=== PATIENT | male | born 1975 | race Caucasian/White ===

== ENCOUNTER → 2023-05-01 | Outpatient (CLI) | payer OTHER ==
--- NOTE | 2023-05-02 08:23 | DIREP ---
PROCEDURE:US SOFT TISSUE NECK COMPARISON:None. INDICATIONS:R22.1 LOCALIZED SWELLING, MASS AND LUMP NECK TECHNIQUE:Sonography of the right submandibular region was performed using grayscale and color Doppler imaging. FINDINGS: MASSES:A complex appearing, well circumscribed, hypoechoic lesion is noted at the site of palpation measuring 4.0 x 2.8 x 3.8 cm. Internal vascularity is demonstrated on the provided color Doppler images. FLUID COLLECTIONS:None. OTHER:Multiple lymph nodes are noted within region II and III of the right side of the neck, with the largest measuring 1.6 x 0.4 x 0.8 cm (with fatty hilum). CONCLUSION:Complex appearing right submandibular mass with internal vascularity with several adjacent prominent lymph nodes. Recommend further evaluation with soft tissue neck CT with IV contrast. Alternatively, the mass would be amenable to percutaneous biopsy. Dictated by: ISABELA Physician on 05/01/2023 at 05:11 PM ac
== END | disposition home or self-care (01) ==
LOC: RAD 14:15
PROVIDERS: ATTEND Nurse Practitioner Family
DX: R22.1 Localized swelling, mass and lump, neck (principal)
CPT/HCPCS: 76536

== ENCOUNTER → 2023-05-14 | Outpatient (CLI) | payer OTHER ==
--- NOTE | 2023-05-14 15:47 | DIREP ---
PROCEDURE:CT SOFT TISSUE NECK W/CONTRAST COMPARISON:[facility] [place], [place], US SOFT TISSUE NECK, 05/01/2023, 02:37 PM. INDICATIONS:R22.1 SWELLING, MASS AND LUMP NECK, R93.89 ABNORMAL FINDINGS TECHNIQUE:CT images were created with intravenous contrast material. Sagittal and coronal reconstructions are performed. FINDINGS: NASOPHARYNX:Normal. Fossae of Rosenmuller and torus tubarius are symmetric. ORAL CAVITY:Normal. No visible mass. OROPHARYNX:Normal. Faucial and lingual tonsils are symmetric. HYPOPHARYNX:Normal. No mass or other visible lesion. LARYNX:Normal. The vocal cords are symmetric and without mass. SINUSES:There is a soft tissue lesion in the right maxillary sinus with dehiscence of the anterior maxillary sinus wall. There is surgical fixation of the maxilla with fixation plates and screws. NECK GLANDS:Normal. The parotid, submandibular, and thyroid glands are unremarkable. LYMPH NODES:There is a heterogenous enhancing well-circumscribed mass in the right cervical level 2 region measuring 3.4 x 3.1 x 4.1 cm. The mass demonstrates central irregular hypoenhancement. The lesion is inferior to the parotid with preserved fat planes. There is posterior and mild medial displacement of the carotid arteries and right internal jugular vein. Multiple subcentimeter lymph nodes are present in the left neck. SKULL BASE:Normal. Foramina are symmetric without bony erosion. VASCULATURE:Normal. Limited views are unremarkable. BONES:Normal. No significant osseous lesions. OTHER:Normal. No additional imaging findings. CONCLUSION: 1. Round mass in the right neck at the cervical level 2 region demonstrates central irregular hypoenhancement. Differential includes a metastatic lymph node or a peripheral nerve sheath tumor. Other considerations include a pleomorphic adenoma, however this does not directly communicate with the parotid gland. Consider biopsy for further evaluation. 2. Soft tissue lesion in the right maxillary sinus is nonspecific. There is associated dehiscence of the anterior maxillary sinus wall. 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 ENT follow-up is recommended. Dictated by: Jonathan Springer M.D. on 05/14/2023 at 03:20 PM
== END | disposition home or self-care (01) ==
LOC: RAD 13:28
PROVIDERS: ATTEND Nurse Practitioner Family
DX: R22.1 Localized swelling, mass and lump, neck (principal)
CPT/HCPCS: 70491; Q9965